=== PATIENT | female | born 2005 | race Caucasian/White ===

== ENCOUNTER → 2024-06-05 09:05 | Outpatient (CLI) | payer BC, SELFPAY | PROVIDERS: Visit Provider Nurse Practitioner Family | DX: R30.0 Dysuria (principal) | CPT/HCPCS: 87077; 87086 ==

== ENCOUNTER 2024-06-06 07:56 | Emergency (ER) | payer BC, SELFPAY ==
[2024-06-06 08:07] VITALS: BP 149/66; PULSE 73; RESP 16; TEMP 36.3; O2SAT 99; BMI 24.9
--- NOTE | 2024-06-06 08:24 | ED.GENADULT ---
HPI - General Adult General Chief complaint: Urogenital-Female Stated complaint: Possible Kidney Stone Time Seen by Provider: 06/06/24 08:06 Source: patient, RN notes reviewed and old records reviewed Mode of arrival: Ambulatory Limitations: no limitations History of Present Illness HPI narrative: 18-year-old female no reported medical issues presents with concern complaint of left-sided pain yesterday in the lower left little bit into the flank today little bit more in the right and into the flank. Patient states no fevers. No nausea or vomiting. She has had a sense of urgency and incomplete emptying but no dysuria. Patient denies any issues with bowel movements. No new vaginal bleeding or discharge. She states no daily medications. No prior surgeries. Has not had similar symptoms in the past. Allergic to azithromycin patient states she develops hives. Regular tobacco, no regular alcohol or recreational drugs. Patient was seen at the walk-in yesterday was prescribed antibiotics but has not started them. She has been taking Tylenol for pain. Presents today because she states she was told if her symptoms change to be evaluated. Related Data Previous Rx's Medication Instructions Recorded cephalexin 500 mg capsule 500 mg PO TID 5 days #15 caps 06/05/24 phenazopyridine 200 mg tablet 200 mg PO TID PRN pain 6 doses #6 06/06/24 (Pyridium) tabs Allergies Allergy/AdvReac Type Severity Reaction Status Date / Time azithromycin Allergy Intermediate Hives Verified 06/05/24 09:04 Review of Systems Review of Systems ROS Unobtainable: All systems reviewed & are unremarkable except as noted in HPI and below Patient History Social History Smoking Status: Never smoker Smoking Status: Never smoker Exam Narrative Exam Narrative: GENERAL: Alert and oriented x three, female in mild distress HEENT: Head normocephalic, atraumatic, EOMI, pupils reactive, face symmetric, moist mucous membranes NECK: Supple, full range of motion CARDIOVASCULAR: Regular rate and rhythm without murmurs, rubs or gallops. RESPIRATORY: Breath sounds equal bilaterally, no wheezes rales or rhonchi. ABDOMEN: Soft, nontender in all 4 quadrants. Normoactive bowel sounds all 4 quadrants. No guarding or rebound, rigidity, no mass : No CVA tenderness bilaterally EXTREMITIES: Normal range of motion, no clubbing or edema. Neurovascularly intact NEUROLOGICAL: Cranial nerves II through XII grossly intact. Moving all extremities SKIN: Warm, dry, no petechiae, no rashes or lesions. Initial Vital Signs Initial Vital Signs: Vital Signs Temperature 97.3 F L 06/06/24 08:07 Pulse Rate 73 06/06/24 08:07 Respiratory Rate 16 06/06/24 08:07 Blood Pressure 149/66 H 06/06/24 08:07 Pulse Oximetry 99 06/06/24 08:07 Oxygen Delivery Method Room Air 06/06/24 08:07 Course Orders Ordered: Discontinued Medications Phenazopyridine HCl (Phenazopyridine 100 Mg Tablet) 200 mg PO NOW ONE Stop: 06/06/24 08:36 Last Admin: 06/06/24 08:49 Dose: 200 mg Documented By: PRAVEEN Vital Signs Vital signs: Vital Signs - 8 hr 06/06/24 08:07 Temperature 97.3 F L Pulse Rate 73 Respiratory Rate 16 Blood Pressure 149/66 H Pulse Oximetry 99 Oxygen Delivery Method Room Air Medical Decision Making [facility] Narrative Medical decision making narrative: Urine dip from walk-in clinic yesterday on 06/05/2024 showed 2+ blood, 3+ leuks, urine culture is currently pending. 18-year-old female started more with left-sided discomfort developed right-sided today describes as being in the right lower as well as flank. She was had a sense of urgency and urinary symptoms as well. Her exam is benign my suspicion for kidney stone or appendectomy or other acute your abdominal process is low. Discussed with the patient I suspect she has UTI that is potentially developing into pyelonephritis. We did discuss obtaining imaging and further workup but after discussion patient elects to follow up and start her oral antibiotics that were sent yesterday. We will give a dose of Pyridium here as well as send a prescription for this. Discussed return precautions all questions answered. Discharge Plan Departure Patient Disposition: Home Clinical Impression: Urinary tract infection Instructions: DI for Urinary Retention in Women Activity Restrictions/Additional Instructions: Please pick your antibiotics up this morning and start them as soon as you can. Typically takes about 24 hours for antibiotics to make a large change in your symptoms. There is a prescription for Pyridium, you can take 1 tablet every 8 hours as needed. This medication helps with bladder spasm and irritation. It will make your urine orange. This prescription was sent to [facility] in [place] Please return for fevers, new or worsening abdominal back or flank pain, vomiting, lightheadedness or passing out, black or bloody stools, difficulty or inability to urinate or other new or concerning changes. Prescriptions: New phenazopyridine [Pyridium] 200 mg tablet 200 mg PO TID PRN (Reason: pain) Qty: 6 0RF No Action cephalexin 500 mg capsule 500 mg PO TID 5 Days Qty: 15 0RF Stand Alone Forms: Patient Portal/API/Survey
[2024-06-06] MEDS: PHENAZOPYRIDINE 100 MG TABLET 200 MG PO (08:49)
[2024-06-06 08:55] VITALS: PULSE 68; RESP 18; O2SAT 99
== END 2024-06-06 08:56 | disposition home or self-care (01) ==
PROVIDERS: Emergency Provider Emergency Medicine
DX: N39.0 Urinary tract infection, site not specified (principal)
CPT/HCPCS: 99283